=== PATIENT | female | born 1960 | race Caucasian/White ===

== ENCOUNTER 2017-08-11 08:16 | Emergency (ER) | payer MEDICAID ==
[~2017-08-11] VITALS: Ht 170.2 cm; Wt 146.2 kg
[2017-08-11 08:34] VITALS: BP 139/89
--- NOTE | 2017-08-11 08:38 | NUR ---
PT AMBULATES TO BED11 DR BRANCH NOTIFIED
--- NOTE | 2017-08-11 08:52 | NUR ---
57f bib self with c/o fatigue, 10/10 "achy" constant body aches, productive cough x 4 days. Pt also reports subjective fevers. Pt denies any n/v/d. Pt is aox4 with steady gait. Skin warm/pink/dry. RR are even and unlabored. No acute distress. Er md cortez by bedside examining pt. All needs met at this time. Will continue to monitor.
[2017-08-11] MEDS ORDERED: KETOROLAC 60 MG/2 ML VIAL IM ONE (08:55)
[2017-08-11 09:41] VITALS: BP 141/80
--- NOTE | 2017-08-11 09:41 | NUR ---
Patient discharged with v/s stable. Written and verbal after care instructions given and explained. Patient alert, oriented and verbalized understanding of instructions. Ambulatory with steady gait. All questions addressed prior to discharge. ID band removed. Patient advised to follow up with PMD. Rx of Tamiflu, Motrin, and Prednisone given. Patient educated on indication of medication including possible reaction and side effects. Opportunity to ask questions provided and answered.
== END 2017-08-11 09:41 | disposition home or self-care (01) ==
LOC: MED 08:16
DX: J11.1 Influenza due to unidentified influenza virus with other respiratory manifestations (principal); R05 Cough
CPT/HCPCS: 81002; 81025; 96372; 99283; J1885

== ENCOUNTER 2018-12-09 22:08 | Inpatient (IN) | payer MEDICAID ==
[~2018-12-09] VITALS: Ht 170.2 cm; Wt 132.4 kg
[2018-12-09 22:11] VITALS: BP 134/70
--- NOTE | 2018-12-09 22:19 | NUR ---
PT TAKEN TO BED 8 VIA WHEELCHAIR BY RN.
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
[2018-12-09] MEDS ORDERED: KETOROLAC 60 MG/2 ML VIAL IM ONE (22:35)
--- NOTE | 2018-12-09 22:51 | NUR ---
PT TAKEN TO [facility] VIA WHEELCHAIR.
--- NOTE | 2018-12-09 23:05 | NUR ---
PT RETUNRED FROM RADIOLOGY VIA WHEELCHAIR.
--- NOTE | 2018-12-10 00:30 | NUR ---
PT ASLEEP. VISIBLE CHEST RISE AND FALL. WILL CONTINUE TO MONITOR.
--- NOTE | 2018-12-10 01:48 | NUR ---
Patient will be admitted to care of Dr. Bhatt. Admited to [facility]. Will go to room 106B. Belongings list completed. VSS at time of transport. Report to JANE Engel. transfer of care at this time.
[2018-12-10 01:49] VITALS: BP 119/72
--- NOTE | 2018-12-10 01:49 | NUR ---
RECEIVED BEDSIDE REPORT FROM ER NURSE WILLY, PATIENT AAOX4, AMBULATORY WITH 1 PERSON ASSISTANCE. IV IN LEFT AC 20 G PATIENT DRESSING INTACT. V/S TAKEN ALL STABLE, PATIENT DENIES PAIN AT THIS TIME. MRSA SCREEN COLLECTED AND SENT TO LAB. CALL LIGHT WITHIN REACH, ADMISSION QUESTIONS ANSWERED, PLACED PATIENT ON FALL RISK PRECAUTIONS.
[2018-12-10 01:57] LABS: APPEARANCE,URINE HAZY (CLEAR); BILIRUBIN,URINE 2+ (NEGATIVE); BLOOD, URINE NEGATIVE (NEGATIVE); COLOR,URINE YELLOW (YELLOW); LEUKOCYTE ESTERASE ,URINE TRACE (NEGATIVE); NITRITE, URINE POSITIVE (NEGATIVE); PH,URINE 5.5 (5.0-9.0); UGLUCOSE NEGATIVE (NEGATIVE)
[2018-12-10 01:58] LABS: BASOPHILS % (AUTO) 0.5 % (0.0-2.0); EOSINOPHILS # (AUTO) 0.3 K/uL (0-0.4); EOSINOPHILS % (AUTO) 3.7 % (0.0-4.0); HEMATOCRIT 39.7 % (36-48); HEMOGLOBIN 13.1 g/dL (12.0-16.0); LYMPHOCYTES # (AUTO) 2.4 K/uL (2.5-16.5); LYMPHOCYTES % (AUTO) 30.5 % (20.5-51.1); MEAN CORPUSCULAR HEMOGLOBIN 30 pg (27-31); MEAN CORPUSCULAR HGB CONC 33 g/dL (33-37); MEAN CORPUSCULAR VOLUME 90.2 fL (80-94); MONOCYTES # (AUTO) 0.5 K/uL (0.8-1.0); MONOCYTES % (AUTO) 6.2 % (1.7-9.3); NEUTROPHILS # (AUTO) 4.6 K/uL (1.8-7.7); NEUTROPHILS % (AUTO) 59.1 % (42.2-75.2); PLATELET COUNT (AUTO) 223 K/uL (140-450); RED CELL DISTRIBUTION WIDTH 14.8 % (11.6-13.7); WHITE BLOOD COUNT (AUTO) 7.7 K/uL (4.8-10.8)
[2018-12-10] MEDS ORDERED: ONDANSETRON 4 MG/2 ML VIAL IVP PRN (02:05)
[2018-12-10] MEDS ORDERED: HYDROcodone/APAP 7.5/325 MG 1 TAB PO PRN (02:05)
[2018-12-10] MEDS ORDERED: ACETAMINOPHEN 325 MG TAB PO PRN (02:05)
[2018-12-10 02:11] LABS: ANION GAP 9.1 (8-16); CARBON DIOXIDE 30.2 mmol/L (21-32); CREATININE 0.7 mg/dL (0.6-1.3); POTASSIUM 3.3 mmol/L (3.5-5.1)
[2018-12-10 02:12] LABS: RBC,URINE 0-5 /HPF (0-5)
--- NOTE | 2018-12-10 02:15 | NUR ---
NOTIFIED RESIDENT OF 3+ BACTERIA ON UA
[2018-12-10 02:18] LABS: ALBUMIN 3.1 g/dL (3.4-5.0)
[2018-12-10 02:25] LABS: BARBITURATE, URINE NEG. ng/ml (NEG <=200); BENZODIAZEPINE, URINE NEG. ng/mL (NEG <=200); CANNABINOID, URINE NEG. ng/mL (NEG <=50); COCAINE, URINE NEG. ng/mL (NEG <=300); OPIATE, URINE NEG. ng/mL (NEG <=2000); PHENCYCLIDINE SCREEN,URINE NEG. ng/mL (NEG <=25)
[2018-12-10 02:25] LABS: PROTHROMBIN TIME 10.3 secs (10.8-13.4)
--- NOTE | 2018-12-10 02:30 | NUR ---
NOTIFIED RESIDENT OF K 3.3 WILL FOLLOW WITH ORDERS
[2018-12-10 02:31] LABS: CHOL/HDL RATIO 3.7 (1-4.5)
[2018-12-10 02:42] LABS: FREE T4 (FREE THYROXINE) 1.54 ng/dL (0.76-1.46); PHOSPHORUS 3.6 mg/dL (2.5-4.9); THYROID STIMULATING HORMONE 2.95 uIU/mL (0.34-3.74)
[2018-12-10] MEDS ORDERED: CYCLOBENZAPRINE 10 MG TAB PO SCH (03:00)
[2018-12-10] MEDS ORDERED: POTASSIUM CHLORIDE 10 MEQ TABER PO SCH (03:00)
[2018-12-10] MEDS ORDERED: DEXAMETHASONE 4 MG/ML VIAL IVP SCH (03:00)
--- NOTE | 2018-12-10 03:02 | NUR ---
K PAD AND SCD APPLIED
--- NOTE | 2018-12-10 03:25 | NUR ---
DUE MEDICATIONS GIVEN EDUCATED REGARDING SIDE EFFECTS
[2018-12-10] MEDS ORDERED: cefTRIAXone 1,000 MG VIAL ONE (04:27)
--- NOTE | 2018-12-10 04:37 | NUR ---
DUE ROCEPHIN GIVEN
--- NOTE | 2018-12-10 07:15 | NUR ---
ENDORSED PATIENT TO DAY SHIFT NURSE JENNIFER, PATIENT STABLE.
--- NOTE | 2018-12-10 07:16 | NUR ---
RECEIVED BEDSIDE REPORT FROM TOOL SHAPER SETUP OPERATOR RN SUMMER FOR CONTINUITY OF CARE. PT IN STABLE CONDITION, AOX4, COOPERATIVE. NO S/S DISTRESS. RESPIRATIONS EVEN AND UNLABORED. KPAD TO LUMBAR SPINE FOR PAIN CONTROL. NO C/O PAIN AT THIS TIME. PT IS AMBULATORY WITH 1 PERSON ASSIST. IV SITE PATENT AND ASYMPTOMATIC, ON SL. ALL SAFETY PRECAUTIONS IN PLACE, WILL CONTINUE TO MONITOR.
[2018-12-10 08:00] VITALS: BP 128/75
[2018-12-10] MEDS: LACTOBACILLUS RHAMNOSUS GG 1 EACH CAP PO SCH (09:15)
[2018-12-10] MEDS: DOCUSATE SODIUM 100 MG GELCAP PO SCH ×2 (09:15→20:35)
[2018-12-10] MEDS: CYCLOBENZAPRINE 10 MG TAB PO SCH ×3 (09:15→17:01)
--- NOTE | 2018-12-10 09:28 | NUR ---
ADMINISTERED SCHEDULED MEDICATIONS. ALL NEEDS MET AT THIS TIME. WILL CONTINUE TO MONITOR.
--- NOTE | 2018-12-10 10:03 | NUR ---
PATIENT INQUIRING ABOUT IVF. INFORMED PT THAT NO IVF ORDERED, PT TO REMAIN ON SALINE LOCK. PT VERBALIZED UNDERSTANDING.
--- NOTE | 2018-12-10 12:03 | NUR ---
PT RESTING IN BED, NO S/S DISTRESS. ALL SAFETY PRECAUTIONS IN PLACE, WILL CONTINUE TO MONITOR.
--- NOTE | 2018-12-10 15:31 | NUR ---
PT REQUESTING SUPPLIES FOR BED BATH, GAVE PATIENT SUPPLIES. NO S/S DISTRESS, WILL CONTINUE TO MONITOR.
[2018-12-10 16:00] VITALS: BP 129/70
--- NOTE | 2018-12-10 17:02 | NUR ---
ADMINISTERED SCHEDULED MEDICATIONS. PT IN STABLE CONDITION. ALL SAFETY PRECAUTIONS IN PLACE, WILL CONTINUE TO MONITOR.
--- NOTE | 2018-12-10 19:03 | NUR ---
ENDORSED POC TO SPACE BUYER RN. PT IN STABLE CONDITION.
--- NOTE | 2018-12-10 19:05 | NUR ---
RECEIVED PT FROM JENNIFER RN PT ESTONIAN SPEAKER AAOX3 ,AMBULATORY, IV ON LEFT AC INFUSING WELL ON HEATING PACK ON HER BACK DENIES ANY PAIN AT THIS LTIME INITIAL ASSESSMENT DONE
--- NOTE | 2018-12-10 21:30 | NUR ---
AFTER NIGH MEDIC GIVEN PT RELAXING ON BED DENIES ANY PAIN AT THIS TIME
[2018-12-11] VITALS: BP 110/53
--- NOTE | 2018-12-11 00:06 | NUR ---
PT AWAKE WATCHING TV DENIES ANY PAIN OR DISCOMFORT NOT DISTRESS NOTED
--- NOTE | 2018-12-11 03:29 | NUR ---
PT HAS BEEN ;MONITORING CLOSE NOT DISTRESS NOTED DENIES ANY PAIN , VOIDING WELL
--- NOTE | 2018-12-11 04:16 | NUR ---
SPONGE BATH GIVEN , LINEN CHANGED NOT DISTRESS NOTED , ON BACK HEATING PAD DENIES ANY PAIN
--- NOTE | 2018-12-11 05:33 | NUR ---
PT RESTING ON BED DENIES ANY AIN ON BACK HEATING PACK WORKING WELL
[2018-12-11 05:43] LABS: ANION GAP 13.2 (8-16); CARBON DIOXIDE 26.5 mmol/L (21-32); CREATININE 0.8 mg/dL (0.6-1.3); POTASSIUM 3.7 mmol/L (3.5-5.1)
--- NOTE | 2018-12-11 06:23 | NUR ---
PT WILL BE ENDORSED TO DAY SHIF NURSE FOR CONTINUE OF CARE
[2018-12-11 06:48] LABS: BASOPHILS % (AUTO) 0.1 % (0.0-2.0); EOSINOPHILS # (AUTO) 0.1 K/uL (0-0.4); EOSINOPHILS % (AUTO) 1.3 % (0.0-4.0); HEMOGLOBIN 12.4 g/dL (12.0-16.0); LYMPHOCYTES # (AUTO) 2.6 K/uL (2.5-16.5); LYMPHOCYTES % (AUTO) 30.5 % (20.5-51.1); MEAN CORPUSCULAR HEMOGLOBIN 30 pg (27-31); MEAN CORPUSCULAR HGB CONC 33 g/dL (33-37); MEAN CORPUSCULAR VOLUME 90.8 fL (80-94); MONOCYTES # (AUTO) 0.5 K/uL (0.8-1.0); MONOCYTES % (AUTO) 6.5 % (1.7-9.3); NEUTROPHILS # (AUTO) 5.2 K/uL (1.8-7.7); NEUTROPHILS % (AUTO) 61.6 % (42.2-75.2); PLATELET COUNT (AUTO) 207 K/uL (140-450); RED BLOOD CELL COUNT(AUTO) 4.08 MIL/uL (4.20-5.40); RED CELL DISTRIBUTION WIDTH 14.6 % (11.6-13.7); WHITE BLOOD COUNT (AUTO) 8.4 K/uL (4.8-10.8)
--- NOTE | 2018-12-11 07:23 | NUR ---
RECEIVED ENDORSEMENT FROM CLERICAL ADJUSTER NURSE. PATIENT IS AAOX3, CROATIAN SPEAKING. RESPIRATIONS ARE EVENA ND UNLABORED ON ROOM AIR. PATIENT DENIES ANY PAIN AT THIS TIME. UPON BEDSHIFT REPORT, IV WAS NOTICED TO BE PULLED OUT. ANOTHER ONE WILL BE INSERTED. PLAN OF CARE WAS REVIEWED WITH PATIENT. PATIENT VERBALIZED UNDERSTANDING. SAFETY MEASURES IN PLACE, CALL LIGHT WITHIN REACH.
[2018-12-11 08:00] VITALS: BP 124/82
--- NOTE | 2018-12-11 08:31 | NUR ---
PATIENT HAS BEEN SCREENED AND CATEGORIZED HIGH NUTRITION RISK. PATIENT WILL BE SEEN WITHIN 1-2 DAYS OF ADMISSION. 12/11/[address]
[2018-12-11] MEDS: CYCLOBENZAPRINE 10 MG TAB PO SCH ×3 (09:16→17:37)
[2018-12-11] MEDS: LACTOBACILLUS RHAMNOSUS GG 1 EACH CAP PO SCH (09:16)
[2018-12-11] MEDS: DOCUSATE SODIUM 100 MG GELCAP PO SCH ×2 (09:16→20:27)
[2018-12-11] MEDS: KETOROLAC 15 MG/ML VIAL IVP PRN (09:17)
--- NOTE | 2018-12-11 09:20 | NUR ---
ADMINISTERED SCHEDULED MEDICATIONS. PATIENT TOLERATED WELL. NO OTHER NEEDS AT THIS TIME, WILL CONTINUE TO MONITOR.
--- NOTE | 2018-12-11 11:20 | NUR ---
PATIENT SITTING IN CHAIR. DENIES ANY PAIN AT THIS TIME. NO OTHER NEEDS AT THIS TIME, WILL CONTINUE TO MONITOR.
--- NOTE | 2018-12-11 12:40 | NUR ---
ADMINISTERED SCHEDULED MEDICATIONS. PATIENT IS SITTING IN CHAIR. NO OTHER NEEDS AT THIS TIME, WILL CONTINUE TO MONITOR.
--- NOTE | 2018-12-11 14:38 | NUR ---
PATIENT SITTING IN CHAIR. REQUESTED AN ORANGE JUICE. NO OTHER NEEDS AT THIS TIME, WILL CONTINUE TO MONITOR.
--- NOTE | 2018-12-11 15:26 | NUR ---
12/11/18 RD INITIAL ASSESSMENT COMPLETED PLEASE REFER TO NUTRITION ASSESSMENT UNDER CARE ACTIVITY FOR ESTIMATED NUTRITIONAL NEEDS. 1. CONTINUE REGULAR DIET TOLERATED 2. RD INSTRUCTED PT ON NUTRITION EDUCATION RELATED TO WEIGHT LOSS. RD PROVIDED PT WITH GENERAL NUTRITION EDUCATION HANDOUT. 3. RD TO FOLLOW-UP 5-7 DAYS, LOW RISK BRENDEN VAUGHN RD
[2018-12-11 16:00] VITALS: BP 148/101
--- NOTE | 2018-12-11 16:22 | NUR ---
PATIENT RESTING IN CHAIR. DENIES ANY PAIN AT THIS TIME NO OTHER NEEDS AT THIS TIME, WILL CONTINUE TO MONITOR.
--- NOTE | 2018-12-11 17:51 | NUR ---
ADMINISTERED SCHEDULED MEDICATIONS. PT TOLERATED WELL.
--- NOTE | 2018-12-11 19:18 | NUR ---
ENDORSED TO CONTACT PERSON NURSE LIDIA FOR CONTINUITY OF CARE. PATIENT IS STABLE AT THIS TIME.
--- NOTE | 2018-12-11 19:19 | NUR ---
RECEIVED REPORT FROM AM NURSE. PT SITTING UP AT EDGE OF BED. PT AWAKE, ALERT AND ORIENTED. ABLE TO VERBALIZE NEEDS. RIGHT FOREARM 22G INTACT. NO C/O DISCOMFORT. SAFETY MEASURES IN PLACE. CALL LIGHT WITHIN REACH.
--- NOTE | 2018-12-11 22:15 | NUR ---
ROUNDED ON PT. PT IN BED TALKING ON PHONE. NO C/O DISCOMFORT. WILL CONTINUE TO MONITOR.
[2018-12-12] VITALS: BP 134/73
--- NOTE | 2018-12-12 00:09 | NUR ---
ADMINISTERED NORCO FOR 6/10 PAIN.
--- NOTE | 2018-12-12 01:09 | NUR ---
PAIN REASSESSED. PT STATED PAIN IS 3/10 WHICH PT STATES IS "TOLERABLE" PT STATES THAT SHE "FEELS MUCH BETTER"
--- NOTE | 2018-12-12 03:20 | NUR ---
IV ANTIBIOTICS HUNG AT THIS TIME, IV FLUSHED, INTACT AND PATENT.
[2018-12-12] MEDS: KETOROLAC 15 MG/ML VIAL IVP PRN (06:45)
--- NOTE | 2018-12-12 06:45 | NUR ---
TORADOL GIVEN FOR 8 BACK PAIN
--- NOTE | 2018-12-12 07:05 | NUR ---
ENDORSED PT TO AM NURSE. PT AMBULATING IN HALLWAY. PT STABLE AT THIS TIME.
--- NOTE | 2018-12-12 07:06 | NUR ---
RECEIVED REPORT FROM PAPER PROCESSING MACHINE HELPER RN, SEPTEMBER. PATIENT AMBULATING IN HALLWAY. NO SIGNS OF DISTRESS, STEADY GAIT. PATIENT WISHES TO SHOWER. WILL PROVIDE SUPPLIES.
[2018-12-12 08:00] VITALS: BP 150/69
--- NOTE | 2018-12-12 08:30 | NUR ---
PATIENT IN THE SHOWER. OPENSTACK DEVELOPER ASSISTED PATIENT TO THE SHOWER. SUPPLIES PROVIDED. WILL ADMINISTER SCHEDULED MEDICATIONS ONCE PATIENT RETURNS TO HER ROOM.
[2018-12-12] MEDS ORDERED: IBUP-2213 PO (09:11)
[2018-12-12] MEDS: CYCLOBENZAPRINE 10 MG TAB PO SCH (09:45)
[2018-12-12] MEDS: LACTOBACILLUS RHAMNOSUS GG 1 EACH CAP PO SCH (09:45)
[2018-12-12] MEDS: DOCUSATE SODIUM 100 MG GELCAP PO SCH (09:45)
--- NOTE | 2018-12-12 09:49 | NUR ---
ADMINISTERED SCHEDULED MEDICATIONS. PATIENT REQUESTING PRESCRIPTIONS FOR SEVERAL OVER THE COUNTER MEDICATIONS. WILL DISCUSS WITH DOCTOR.
[2018-12-12] MEDS ORDERED: CYCL-654 PO (11:06)
[2018-12-12 11:07] VITALS: BP 150/69
== END 2018-12-12 12:58 | disposition home or self-care (01) | DRG 347 ==
LOC: MED 22:08 → MTU 12-10 01:20
PROVIDERS: ADMIT General Practice; ATTEND General Practice
DX: S32.029A Unspecified fracture of second lumbar vertebra, initial encounter for closed fracture (principal); N17.0 Acute kidney failure with tubular necrosis; E44.1 Mild protein-calorie malnutrition; E66.01 Morbid (severe) obesity due to excess calories; Z68.42 Body mass index [BMI] 45.0-49.9, adult; S32.059A Unspecified fracture of fifth lumbar vertebra, initial encounter for closed fracture; W18.39XA Other fall on same level, initial encounter; N39.0 Urinary tract infection, site not specified; E87.6 Hypokalemia; F41.9 Anxiety disorder, unspecified; E86.0 Dehydration; Y93.89 Activity, other specified; Y92.89 Other specified places as the place of occurrence of the external cause; Y99.8 Other external cause status; Z59.0 Homelessness
CPT/HCPCS: 36415; 72110; 72131; 80048; 80053; 80305; 81001; 82150; 83036; 83690; 83735; 83880; 84100; 84439; 84443; 84484; 85025; 85610; 85730; 87081; 87086; 93005; 96372; 99285; J0696; J1100; J1644; J1885; J7060

== ENCOUNTER 2019-01-20 21:23 | Emergency (ER) | payer MEDICAID ==
[~2019-01-20] VITALS: Ht 170.2 cm; Wt 122.5 kg
[~2019-01-20 21:23] MED LIST: CYCL-654 PO; IBUP-2213 PO
[2019-01-20 21:28] VITALS: BP 130/75
[2019-01-21] MEDS ORDERED: KETOROLAC 60 MG/2 ML VIAL IM ONE (00:30)
[2019-01-21] MEDS ORDERED: AZITHROMYCIN 250 MG TAB PO ONE (00:45)
[2019-01-21] MEDS ORDERED: cefTRIAXone 250 MG in LIDOCAINE MPF 1% - 5 mL VIAL 0.9 ML IM ONE (00:45)
[2019-01-21 02:40] VITALS: BP 106/64
[2019-01-24 15:21] LABS: CHLAMYDIA TRACHOMATIS AMP DNA Negative (Negative)
== END 2019-01-21 02:40 | disposition home or self-care (01) ==
LOC: MED 21:23
DX: M54.5 Low back pain (principal); R11.0 Nausea; Z98.890 Other specified postprocedural states; Z79.899 Other long term (current) drug therapy
CPT/HCPCS: 36415; 81002; 81025; 96372; 99283; J0696; J1885; J2001; 87491

== ENCOUNTER 2020-10-17 21:20 | Emergency (ER) | payer MEDICAID ==
[~2020-10-17] VITALS: Ht 162.6 cm; Wt 138.8 kg
[2020-10-17 21:27] VITALS: BP 119/75
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
--- NOTE | 2020-10-17 21:45 | NUR ---
ERMD AT BEDSIDE EVALUATING PT.
[2020-10-17] MEDS ORDERED: HYDROcodone/APAP 5/325 MG 1 TAB TAB PO ONE (21:50)
--- NOTE | 2020-10-17 21:59 | NUR ---
XR AT BEDSIDE.
--- NOTE | 2020-10-17 22:32 | NUR ---
PT RETURNED BACK FROM XR.
[2020-10-17] MEDS ORDERED: METH750T5 PO (23:24)
[2020-10-17] MEDS ORDERED: IBUP-2213 PO (23:24)
--- NOTE | 2020-10-17 23:33 | NUR ---
Patient discharged with v/s stable. Written and verbal after care instructions given and explained. Patient alert, oriented and verbalized understanding of instructions. Ambulatory with steady gait. All questions addressed prior to discharge. ID band removed. Patient advised to follow up with PMD. Rx of IBUPROFEN AND METHOCARBAMOL given. Patient educated on indication of medication including possible reaction and side effects. Opportunity to ask questions provided and answered.
[2020-10-17 23:37] VITALS: BP 124/80
== END 2020-10-17 23:33 | disposition home or self-care (01) ==
LOC: MED 21:20
DX: S32.029A Unspecified fracture of second lumbar vertebra, initial encounter for closed fracture (principal); S32.059A Unspecified fracture of fifth lumbar vertebra, initial encounter for closed fracture; R42 Dizziness and giddiness; R11.0 Nausea; V89.2XXA Person injured in unspecified motor-vehicle accident, traffic, initial encounter; Y93.89 Activity, other specified; Y92.410 Unspecified street and highway as the place of occurrence of the external cause; Y99.8 Other external cause status
CPT/HCPCS: 72100; 99283